=== PATIENT | male | born 1965 | race Caucasian/White ===

== ENCOUNTER → 2021-03-09 14:47 | Outpatient (BNVA) | payer OTHER, SELFPAY | PROVIDERS: PCP Internal Medicine; Visit Provider Urology ==

== ENCOUNTER 2022-02-24 14:23 | Outpatient (REF) | payer OTHER, SELFPAY ==
--- NOTE | ~2022-02-24 | US_ITS ---
EXAMINATION: US RETROPERITONEAL LIMITED (RENAL ONLY) CLINICAL INFORMATION: Kidney stones. COMPARISON: None TECHNIQUE: Real-time imaging of the kidneys. FINDINGS: RIGHT KIDNEY: 6.5 x 3.9 x 3.3 cm (SAG x AP x TRV). The kidney is small. There is renal cortical thinning. There is question of 2 small stones measuring 3 x 4 mm and 2 x 3 mm in the lower and midpole. No focal parenchymal lesions or hydronephrosis. LEFT KIDNEY: 12.2 x 5.8 x 5.7 cm (SAG x AP x TRV). The kidney is normal in size, contour, and echogenicity. Renal cortical thickness is normal. There is a 1 cm cyst in the lower pole. No renal calculi or hydronephrosis. US/US renal BI IMPRESSION: Atrophic-appearing right kidney. Question small right renal stones. Small left renal cyst.
== END 2022-02-24 14:24 | disposition home or self-care (01) ==
LOC: HO.HMGCX 14:23
PROVIDERS: PCP Internal Medicine; Visit Provider Urology
DX: N20.0 Calculus of kidney (principal)
CPT/HCPCS: 76775

== ENCOUNTER 2023-03-17 13:21 | Outpatient (AMB) | payer OTHER, SELFPAY ==
--- NOTE | 2023-03-17 13:42 | A.OFFVIS_ITS ---
Intake Intake Visit Reasons: 1Y US(set) Intake Note: Patient presents today for a follow-up on Renal Ultrasound: Meds- None Allergies to Antibiotic- No Known Allergies Blood Thinner- None Video Game Producer Required: No Accompanied by: Self / Same As Patient Allergies No Known Allergies Allergy (Verified 03/17/23 13:42) Medication List - Last Reconciled 03/17/23 by Felice Plummer MD gabapentin mg PO DAILY PRN hydrocodone-acetaminophen 7.5-325 mg tabs PO ropinirole 1 mg PO BID rotigotine (Neupro) 1 patch topical DAILY simvastatin 10 mg PO BEDTIME sumatriptan succinate 100 mg PO DAILY PRN trazodone 100 mg PO BEDTIME PRN HPI HPI Comments History of Present Illness Details Mr Gerber is a very pleasant male. He is a patient of Dr Griffith. They are seen for the following urologic conditions. - atrophic right kidney - nephrolithiasis Discussed ultrasound finding Question of 2 small stones on right with small cyst on left Continued follow-up He reminded me - [employer] Nephrolithiasis/Urolithiasis:? They are here for?further evaluation of nephrolithiasis ?- has been keeping up hydration ?- looking forward to [employer] season ?- discussed findings. Right atrophic kidney as known. No stones? They present for evaluation of? back pain ?none ? flank pain ?none ? abdominal pain ?none ? Urolithiasis was diagnosed?2013.? The patient previously had kidney stones whose composition w?unknown.? Laboratory investigations include?no recent labs, no recent labs.? 24 Hour urine evaluation?none on file, none on file.? Prior treatment(s) include?ESWL, left 4mm stone in setting of atrophic right kidney.? Prior imaging includes?a KUB x-ray, 2014 showing no evidence of stones ?02/06 , a KUB x-ray, showing no evidence of stones ?03/10 , a renal ultrasound, showing no evidence of stones, small cyst right, 03/10 nuc scan - R 12% with incomplete clearance ?03/11 , a renal ultrasound, atrophic right kidney, no stones ?03/12 , a renal ultrasound atrophic right, left no stones - 03/13 renal ultrasound right atrophic kidney, 1.2 cm cyst, no stones - 03/14 renal ultrasound right atrophic kidney, left kidney 1.2 cm cyst - 03/15 renal ultrasound evidence of stones ? UA today shows?high specific gravity suggestive of relative dehydration.? Current therapeutic plan will be?review in 12m.? Review of Systems Const Denies chills and Denies fever(s) Card Reports no additional complaints and Denies syncope Resp Denies cough GI Denies abdominal pain and Denies heartburn Reports as per HPI and Denies change in libido Neuro Denies syncope Psych Denies change in libido Endo Denies change in libido Physical Exam Const General: cooperative, healthy appearing, comfortable and no acute distress Orientation/consciousness: patient oriented x3 HEENT Face and sinus: Yes normal facial exam Mouth: moist mucous membranes Neck Neck: Yes normal visual inspection, Yes full ROM and Yes trachea midline Chest Chest palpation & inspection: normal inspection of the chest Resp Effort & Inspection: normal respiratory effort, able to speak in complete se ntences and no respiratory distress GI Inspection: Yes normal to inspection Back/Spine/Pelvis Cervical Spine: normal cervical lordosis Thoracic/Lumbar Spine: thoracic and lumbar spine normal to inspection Skin General skin exam: no rashes or lesions noted Neuro General: patient oriented x3, gait normal, tone normal and moves all extremities Extrem General: Yes normal to inspection and Yes capillary refill normal Assessment & Plan Assessment & Plan (1) Nephrolithiasis: Code(s): N20.0 - Calculus of kidney Plan 1 year follow-up ultrasound Orders: Orders US renal BI 364 Days N20.0 - Calculus of kidney Patient Instructions: Imaging studies, laboratory and physical exam results were discussed and reviewed in detail. No major barriers to patient understanding were identified. An opportunity to ask questions regarding the treatment plan was provided. All questions were answered. The patient expressed understanding and agreement with the above treatment plan. The patient is aware they should contact our office by phone for worsening of their current condition or the appearance of new urologic symptoms. Compliance is encouraged with any medications and followup testing that is ordered. It is a privilege to participate in the urologic care of your patient. If you have any questions or concerns regarding treatment for the above conditions, or other urologic issues, please do not hesitate to contact me. The office tele phone contact is [phone]. This note is constructed using voice recognition software. While every effort has been made to ensure accuracy grinding wheel inspector errors may have been included. Yours sincerely, Dr Felice Plummer MD, [facility] - Urology Providers of Expert, Compassionate Care for the Genitourinary System Coding Level of Care Code Est Pt Level 4 (09857) Diagnoses Nephrolithiasis N20.0
== END 2023-03-17 14:11 | disposition home or self-care (01) ==
PROVIDERS: PCP Internal Medicine; Visit Provider Urology
DX: N20.0 Calculus of kidney (principal)
CPT/HCPCS: 99214

== ENCOUNTER → 2023-03-17 13:21 | Outpatient (BNVA) | payer OTHER, SELFPAY | PROVIDERS: Visit Provider Urology ==

== ENCOUNTER 2024-03-19 13:13 | Outpatient (AMB) | payer OTHER, SELFPAY ==
--- NOTE | 2024-03-19 13:17 | A.OFFVIS_ITS ---
Intake Visit Reasons: 1Y Follow Up-US/PSA(set) Intake Note: Patient is Present for Follow Up psa/ultrasound/urinalysis Urology Medication:None Antibiotic Allergies: None Blood Thinners:None Patient denies any pain or discomfort. States he has some concerns on his urination Report was sent by his PCP. States there was some blood in his urine. He also states he has been having a lot of frequency Allergies No Known Allergies Allergy (Verified 03/17/23 13:42) HPI Comments Details: Mr Gerber is a very pleasant male. He is a patient of Dr Griffith. They are seen for the following urologic conditions. - atrophic right kidney - nephrolithiasis Discussed ultrasound finding No stones 1.2 cm cyst on left UA 2+ blood Plan office cystoscopy - nonsmoker - no were placed exposure to chemicals He reminded me - [employer] PSA 02/13 0.3 Nephrolithiasis/Urolithiasis:? They are here for?further evaluation of nephrolithiasis ?- has been keeping up hydration ?- looking forward to [employer] season ?- discussed findings. Right atrophic kidney as known. No stones? They present for evaluation of? back pain ?none ? flank pain ?none ? abdominal pain ?none ? Urolithiasis was diagnosed?2013.? The patient previously had kidney stones whose composition w?unknown.? Laboratory investigations include?no recent labs, no recent labs.? 24 Hour urine evaluation?none on file, none on file.? Prior treatment(s) include?ESWL, left 4mm stone in setting of atrophic right kidney.? Prior imaging includes?a KUB x-ray, 2014 showing no evidence of stones ?02/06 , a KUB x-ray, showing no evidence of stones ?03/10 , a renal ultrasound, showing no evidence of stones, small cyst right, 03/10 nuc scan - R 12% with incomplete clearance ?03/11 , a renal ultrasound, atrophic right kidney, no stones ?03/12 , a renal ultrasound atrophic right, left no stones - 03/13 renal ultrasound right atrophic kidney, 1.2 cm cyst, no stones - 03/14 renal ultrasound right atrophic kidney, left kidney 1.2 cm cyst - 03/15 renal ultrasound evidence of stones - 03/16 renal ultrasound right atrophic kidney, 1.2 cm cyst on left, no stones ? UA today shows?high specific gravity suggestive of relative dehydration.? Current therapeutic plan will be?review in 12m.? Review of Systems Const Denies chills and Denies fever(s) Card Reports no additional complaints and Denies syncope Resp Denies cough GI Denies abdominal pain and Denies heartburn Reports as per HPI and Denies change in libido Neuro Denies syncope Psych Denies change in libido Endo Denies change in libido Physical Exam Const General: cooperative, healthy appearing, comfortable and no acute distress Orientation/consciousness: patient oriented x3 HEENT Face and sinus: Yes normal facial exam Mouth: moist mucous membranes Neck Neck: Yes normal visual inspection, Yes full ROM and Yes trachea midline Chest Chest palpation & inspection: normal inspection of the chest Resp Effort & Inspection: normal respiratory effort, able to speak in complete sentences and no respiratory distress GI Inspection: Yes normal to inspection Back/Spine/Pelvis Cervical Spine: normal cervical lordosis Thoracic/Lumbar Spine: thoracic and lumbar spine normal to inspection Skin General skin exam: no rashes or lesions noted Neuro General: patient oriented x3, gait normal, tone normal and moves all extremities Extrem General: Yes normal to inspection and Yes capillary refill normal Results AMB Urinalysis, Automated UA Leukoctes 0 Abdulaziz/uL Last Edit by RUSSELL Queen on 03/19/24 13:25 UA Nitrite Negative Last Edit by RUSSELL Queen on 03/19/24 13:25 UA Urobilinogen 0.2 mg/dL Last Edit by RUSSELL Queen on 03/19/24 13:2 5 UA Protein 0 mg/dL Last Edit by RUSSELL Queen on 03/19/24 13:25 UA pH 5.0 Last Edit by Elsy Campbell, RMA on 03/19/24 13:25 UA Blood 80 Daniel/uL Last Edit by Elsy Campbell, RMA on 03/19/24 13:25 UA Specific [place] 1.025 Last Edit by Elsy Almeidaro, RMA on 03/19/24 13: 25 UA Ketone Negative Last Edit by Elsy Campbell, RMA on 03/19/24 13:25 UA Bilirubin 0 mg/dL Last Edit by Elsy Campbell, RMA on 03/19/24 13:25 UA Glucose 0 mg/dL Last Edit by Elsy Campbell, RMA on 03/19/24 13:25 Results Reviewed Results Reviewed: Laboratory Last Values Urine pH (Auto) 5.0 03/19/24 13:24 Specific [place] (Auto) 1.025 03/19/24 13:24 Urine Protein (Auto) 0 mg/dL 03/19/24 13:24 Glucose (UA)(Auto) 0 mg/dL 03/19/24 13:24 Urine Ketones (Auto) Negative 03/19/24 13:24 Urine Blood (Auto) 80 Daniel/uL 03/19/24 13:24 Urine Nitrite (Auto) Negative 03/19/24 13:24 Urine Bilirubin (Auto) 0 mg/dL 03/19/24 13:24 Urine Urobilinogen (Auto) 0.2 mg/dL 03/19/24 13:24 Leukocyte Esterase (Auto) 0 Abdulaziz/uL 03/19/24 13:24 Assessment & Plan Assessment & Plan (1) Microscopic hematuria: Code(s): R31.29 - Other microscopic hematuria Category: Medical (2) Nephrolithiasis: Code(s): N20.0 - Calculus of kidney Category: Medical Plan Office cystoscopy Orders: Orders AMB Urinalysis Automated Today Z13.9 - Encounter for screening, unspecified Patient Instructions: Imaging studies, laboratory and physical exam results were discussed and reviewed in detail. No major barriers to patient understanding were identified. An opportunity to ask questions regarding the treatment plan was provided. All questions were answered. The patient expressed understanding and agreement with the above treatment plan. The patient is aware they should contact our office by phone for worsening of their current condition or the appearance of new urologic symptoms. Compliance is encouraged with any medications and followup testing that is ordered. It is a privilege to participate in the urologic care of your patient. If you have any questions or concerns regarding treatment for the above conditions, or other urologic issues, please do not hesitate to contact me. The office telephone contact is [phone]. This note is constructed using voice recognition software. While every effort has been made to ensure accuracy show worker errors may have been included. Yours sincerely, Dr Felice Plummer MD, [facility] - Urology Providers of Expert, Compassionate Care for the Genitourinary System Coding Level of Care Code Est Pt Level 4 (04200) Diagnoses Microscopic hematuria R31.29 Nephrolithiasis N20.0
== END 2024-03-19 13:49 | disposition home or self-care (01) ==
PROVIDERS: PCP Internal Medicine; Visit Provider Urology
DX: R31.29 Other microscopic hematuria (principal); N20.0 Calculus of kidney; Z13.9 Encounter for screening, unspecified
CPT/HCPCS: 99214

== ENCOUNTER → 2024-03-19 13:13 | Outpatient (BNVA) | payer OTHER, SELFPAY | PROVIDERS: PCP Internal Medicine; Visit Provider Urology | DX: R31.29 Other microscopic hematuria (principal); N20.0 Calculus of kidney | CPT/HCPCS: 81003 ==

== ENCOUNTER 2024-04-19 12:43 | Outpatient (REF) | payer OTHER, SELFPAY ==
[2024-04-19 16:37] LABS: Urine Cytology See Pathology rpt
== END 2024-04-19 12:44 | disposition home or self-care (01) ==
LOC: HO.LAB 12:43
PROVIDERS: PCP Internal Medicine; Visit Provider Urology
DX: R31.29 Other microscopic hematuria (principal)
CPT/HCPCS: 52000; 81003; 88112

== ENCOUNTER 2024-04-19 12:43 | Outpatient (AMB) | payer OTHER, SELFPAY ==
--- NOTE | 2024-04-19 13:05 | MHC.OFFVIS ---
Intake Visit Reasons: cysto Intake Note: Patient is Present for Cystoscopy Urology Med:None Antibiotic Allergy: None Blood Thinner: None URO- G Disposable Cystoscope lot:[id number] exp:11/01/2026 Allergies No Known Allergies Allergy (Verified 03/17/23 13:42) HPI Comments Details: Mr Gerber is a very pleasant male. He is a patient of Dr Griffith. They are seen for the following urologic conditions. - atrophic right kidney - nephrolithiasis Cystoscopy Has cystitis on posterior wall bladder Trial Bactrim three-month low-dose Discussed ultrasound finding No stones 1.2 cm cyst on left UA 2+ blood Plan office cystoscopy - nonsmoker - no were placed exposure to chemicals He reminded me - [employer] PSA 02/13 0.3 Nephrolithiasis/Urolithiasis:? They are here for?further evaluation of nephrolithiasis ?- has been keeping up hydration ?- looking forward to [employer] season ?- discussed findings. Right atrophic kidney as known. No stones? They present for evaluation of? back pain ?none ? flank pain ?none ? abdominal pain ?none ? Urolithiasis was diagnosed?2013.? The patient previously had kidney stones whose composition w?unknown.? Laboratory investigations include?no recent labs, no recent labs.? 24 Hour urine evaluation?none on file, none on file.? Prior treatment(s) include?ESWL, left 4mm stone in setting of atrophic right kidney.? Prior imaging includes?a KUB x-ray, 2014 showing no evidence of stones ?02/06 , a KUB x-ray, showing no evidence of stones ?03/10 , a renal ultrasound, showing no evidence of stones, small cyst right, 03/10 nuc scan - R 12% with incomplete clearance ?03/11 , a renal ultrasound, atrophic right kidney, no stones ?03/12 , a renal ultrasound atrophic right, left no stones - 03/13 renal ultrasound right atrophic kidney, 1.2 cm cyst, no stones - 03/14 renal ultrasound right atrophic kidney, left kidney 1.2 cm cyst - 03/15 renal ultrasound evidence of stones - 03/16 renal ultrasound right atrophic kidney, 1.2 cm cyst on left, no stones ? UA today shows?high specific gravity suggestive of relative dehydration.? Current therapeutic plan will be?review in 12m Microscopic hematuria Persistent Normal imaging Office Procedures Cystoscopy Consent Discussed risk and benefit or proposed procedure with the patient. Information consent for procedure given to the patient. Discussed technical aspects, risks, benefits and alternatives in full. Addressed all of the patient's questions and concerns regarding the procedure. The patient demonstrated knowledge and understanding. They wish to proceed with this procedure. Preparation The patient was prepped in the usual manner. A school cafeteria cook was present and in the room. Genitalia was prepped with betadine solution in a sterile manner. Lidocaine Jelly 2% was placed into the urethra and 16Fr flexible Olympus cystoscope was inserted into the meatus after adequate lubrication. Procedure Cystoscopy performed using a disposable Urovue digital 16 Japanese cystoscope. Meatus circumcised Urethra anterior and posterior urethra normal Prostatic Urethra unremarkable Bladder examination with retroflexion of cystoscope Bladder Orifices normal shape and position Bladder Capacity median Trabeculations -- Cellule Formation - Diverticulum Formation - Mucosal Erythema - Bladder Tumor - [id number] DISPOSABLE SCOPE URO-G FLEXIBLE SCOPE Procedure code (CPT) selection complete Office Meds lidocaine HCl 2 % mucosal jelly in applicator Performing Provider: Felice Plummer MD Performing Location: [facility] [place] [facility] Administered by: Piero Ruelas LPN on 04/19/24 13:24 Dose Route Admin Location Dispensed Lot Number Expiration Date [facility] Operations Asst 10 mL intra-urethral 10 mL nitrofurantoin monohydrate/macrocrystals 100 mg capsule Performing Provider: Felice Plummer MD Performing Location: [facility] [place] [facility] Administered by: Piero Ruelas LPN on 04/19/24 13:24 Dose Route Admin Location Dispensed Lot Number Expiration Date [facility] Operations Asst 100 mg PO 1 cap naproxen 500 mg tablet Performing Provider: Felice Plummer MD Performing [facility] [place] [facility] Administered by: Piero Ruelas LPN on 04/19/24 13:24 Dose Route Admin Location Dispensed Lot Number Expiration Date [facility] Operations Asst 500 mg PO 1 tab Results AMB Urinalysis, Automated UA Leukoctes 0 Abdulaziz/uL Last Edit by Elsy Campbell A on 04/19/24 13:23 UA Nitrite Negative Last Edit by Elsy Campbell A on 04/19/24 13:23 UA Urobilinogen 0.2 mg/dL Last Edit by Elsy Campbell A on 04/19/24 13:23 UA Protein 15 mg/dL Last Edit by Elsy Campbell A on 04/19/24 13:23 UA pH 5.0 Last Edit by Elsy Campbell A on 04/19/24 13:23 UA Blood 200 Daniel/uL Last Edit by Elsy Campbell A on 04/19/24 13:23 UA Specific [place] 1.030 Last Edit by Elsy Campbell A on 04/19/24 13:23 UA Ketone Negative Last Edit by Elsy Campbell A on 04/19/24 13:23 UA Bilirubin 0 mg/dL Last Edit by Elsy Campbell A on 04/19/24 13:23 UA Glucose 0 mg/dL Last Edit by Elsy Campbell A on 04/19/24 13:23 Results Reviewed Results Reviewed: Laboratory Last Values Urine pH (Auto) 5.0 04/19/24 13:17 Specific [place] (Auto) 1.030 04/19/24 13:17 Urine Protein (Auto) 15 mg/dL 04/19/24 13:17 Glucose (UA)(Auto) 0 mg/dL 04/19/24 13:17 Urine Ketones (Auto) Negative 04/19/24 13:17 Urine Blood (Auto) 200 Daniel/uL 04/19/24 13:17 Urine Nitrite (Auto) Negative 04/19/24 13:17 Urine Bilirubin (Auto) 0 mg/dL 04/19/24 13:17 Urine Urobilinogen (Auto) 0.2 mg/dL 04/19/24 13:17 Leukocyte Esterase (Auto) 0 Abdulaziz/uL 04/19/24 13:17 Assessment & Plan Assessment & Plan (1) Cystitis: Code(s): N30.90 - Cystitis, unspecified without hematuria Category: Medical Plan Cystitis Daily low-dose Bactrim Orders: Orders AMB Cystoscopy 04/19/24 R31.29 - Other microscopic hematuria AMB Urinalysis Automated 04/19/24 Z13.9 - Encounter for screening, unspecified, R31.29 - Other microscopic hematuria Urine Cytology 04/19/24 R31.29 - Other microscopic hematuria Medications: New sulfamethoxazole-trimethoprim 400-80 mg (Bactrim) 1 tab PO BEDTIME 90 tabs 0RF 90 days N30.90 - Cystitis, unspecified without hematuria, N39.0 - Urinary tract infection, site not specified Patient Instructions: Imaging studies, laboratory and physical exam results were discussed and reviewed in detail. No major barriers to patient understanding were identified. An opportunity to ask questions regarding the treatment plan was provided. All questions were answered. The patient expressed understanding and agreement with the above treatment plan. The patient is aware they should contact our office by phone for worsening of their current condition or the appearance of new urologic symptoms. Compliance is encouraged with any medications and followup testing that is ordered. It is a privilege to participate in the urologic care of your patient. If you have any questions or concerns regarding treatment for the above conditions, or other urologic issues, please do not hesitate to contact me. The office telephone contact is [phone]. This note is constructed using voice recognition software. While every effort has been made to ensure accuracy director river restoration errors may have been included. Yours sincerely, Dr Felice Plummer MD, [facility] - Urology Providers of Expert, Compassionate Care for the Genitourinary System Coding Level of Care Code Est Pt Level 4 (25148) Diagnoses Cystitis N30.90 CPT Codes Cystoscopy - CPT: [id number] ([id number])
== END 2024-04-19 13:54 | disposition home or self-care (01) ==
PROVIDERS: PCP Internal Medicine; Visit Provider Urology
DX: R31.29 Other microscopic hematuria (principal); Z13.9 Encounter for screening, unspecified
CPT/HCPCS: 52000; 99214

== ENCOUNTER 2024-07-12 15:00 | Outpatient (AMB) | payer OTHER, SELFPAY ==
--- NOTE | 2024-07-12 15:17 | A.OFFVIS_ITS ---
Intake Visit Reasons: 3m/UA Intake Note: Patient is present for 3M/UA Urology Medication:NONE Antibiotic Allergy:NONE Blood Thinner:NONE Stereotyper Required: No Allergies No Known Allergies Allergy (Verified 07/12/24 15:17) HPI Comments Details: Mr Gerber is a very pleasant male. He is a patient of Dr Griffith. They are seen for the following urologic conditions. - atrophic right kidney - nephrolithiasis Three-month follow-up Bactrim low-dose UA 1+ blood otherwise negative Prior Cystoscopy had cystitis on posterior wall bladder Discussed ultrasound finding No stones 1.2 cm cyst on left UA 2+ blood PSA 02/13 0.3 Nephrolithiasis/Urolithiasis:? They are here for?further evaluation of nephrolithiasis ?- has been keeping up hydration ?- looking forward to [employer] season ?- discussed findings. Right atrophic kidney as known. No stones? They present for evaluation of? back pain ?none ? flank pain ?none ? abdominal pain ?none ? Urolithiasis was diagnosed?2013.? The patient previously had kidney stones whose composition w?unknown.? Laboratory investigations include?no recent labs, no recent labs.? 24 Hour urine evaluation?none on file, none on file.? Prior treatment(s) include?ESWL, left 4mm stone in setting of atrophic right kidney.? Prior imaging includes?a KUB x-ray, 2014 showing no evidence of stones ?02/06 , a KUB x-ray, showing no evidence of stones ?03/10 , a renal ultrasound, showing no evidence of stones, small cyst right, 03/10 nuc scan - R 12% with incomplete clearance ?03/11 , a renal ultrasound, atrophic right kidney, no stones ?03/12 , a renal ultrasound atrophic right, left no stones - 03/13 renal ultrasound right atrophic kidney, 1.2 cm cyst, no stones - 03/14 renal ultrasound right atrophic kidney, left kidney 1.2 cm cyst - 03/15 renal ultrasound evidence of stones - 03/16 renal ultrasound right atrophic kidney, 1.2 cm cyst on left, no stones ? UA today shows?high specific gravity suggestive of relative dehydration.? Current therapeutic plan will be?review in 12m Microscopic hematuria Persistent Normal imaging Review of Systems Const Denies chills and Denies fever(s) Card Reports no additional complaints and Denies syncope Resp Denies cough GI Denies abdominal pain and Denies heartburn Reports as per HPI and Denies change in libido Neuro Denies syncope Psych Denies change in libido Endo Denies change in libido Physical Exam Const General: cooperative, healthy appearing, comfortable and no acute distress Orientation/consciousness: patient oriented x3 HEENT Face and sinus: Yes normal facial exam Mouth: moist mucous membranes Neck Neck: Yes normal visual inspection, Yes full ROM and Yes trachea midline Chest Chest palpation & inspection: normal inspection of the chest Resp Effort & Inspection: normal respiratory effort, able to speak in complete sentences and no respiratory distress GI Inspection: Yes normal to inspection Back/Spine/Pelvis Cervical Spine: normal cervical lordosis Thoracic/Lumbar Spine: thoracic and lumbar spine normal to inspection Skin General skin exam: no rashes or lesions noted Neuro General: patient oriented x3, gait normal, tone normal and moves all extremities Extrem General: Yes normal to inspection and Yes capillary refill normal Results AMB Urinalysis, Automated UA Leukoctes 0 Abdulaziz/uL Last Edit by DARRYL John on 07/12/24 15:28 UA Nitrite Negative Last Edit by DARRYL John on 07/12/24 15:28 UA Urobilinogen 0.2 mg/dL Last Edit by DARRYL John on 07/12/24 15:2 8 UA Protein 15 mg/dL Last Edit by DARRYL John on 07/12/24 15:28 UA pH 6.0 Last Edit by DARRYL John on 07/12/24 15:28 UA Blood 80 Daniel/uL Last Edit by DARRYL John on 07/12/24 15:28 UA Specific [place] 1.025 Last Edit by DARRYL John on 07/12/24 15: 28 UA Ketone Negative Last Edit by DARRYL John on 07/12/24 15:28 UA Bilirubin 0 mg/dL Last Edit by DARRYL John on 07/12/24 15:28 UA Glucose 0 mg/dL Last Edit by DARRYL John on 07/12/24 15:28 Results Reviewed Results Reviewed: Laboratory Last Values Urine pH (Auto) 6.0 07/12/24 15:27 Specific [place] (Auto) 1.025 07/12/24 15:27 Urine Protein (Auto) 15 mg/dL 07/12/24 15:27 Glucose (UA)(Auto) 0 mg/dL 07/12/24 15:27 Urine Ketones (Auto) Negative 07/12/24 15:27 Urine Blood (Auto) 80 Daniel/uL 07/12/24 15:27 Urine Nitrite (Auto) Negative 07/12/24 15:27 Urine Bilirubin (Auto) 0 mg/dL 07/12/24 15:27 Urine Urobilinogen (Auto) 0.2 mg/dL 07/12/24 15:27 Leukocyte Esterase (Auto) 0 Abdulaziz/uL 07/12/24 15:27 Assessment & Plan Assessment & Plan (1) Nephrolithiasis: Code(s): N20.0 - Calculus of kidney Category: Medical (2) Cystitis: Code(s): N30.90 - Cystitis, unspecified without hematuria Category: Medical (3) Microscopic hematuria: Code(s): R31.29 - Other microscopic hematuria Category: Medical Plan Six-month follow-up UA Orders: Orders AMB Urinalysis Automated Today Z13.9 - Encounter for screening, unspecified Patient Instructions: Imaging studies, laboratory and physical exam results were discussed and reviewed in detail. No major barriers to patient understanding were identified. An opportunity to ask questions regarding the treatment plan was provided. All questions were answered. The patient expressed understanding and agreement with the above treatment plan. The patient is aware they should contact our office by phone for worsening of their current condition or the appearance of new urologic symptoms. Compliance is encouraged with any medications and followup testing that is ordered. It is a privilege to participate in the urologic care of your patient. If you have any questions or concerns regarding treatment for the above conditions, or other urologic issues, please do not hesitate to contact me. The office telephone contact is [phone]. This note is constructed using voice recognition software. While every effort has been made to ensure accuracy tactical debriefer officer errors may have been included. Yours sincerely, Dr Felice Plummer MD, [facility] - Urology Providers of Expert, Compassionate Care for the Genitourinary System Coding Level of Care Code Est Pt Level 3 (03696) Diagnoses Nephrolithiasis N20.0 Cystitis N30.90 Microscopic hematuria R31.29
== END 2024-07-12 16:13 | disposition home or self-care (01) ==
PROVIDERS: PCP Internal Medicine; Visit Provider Urology
DX: N20.0 Calculus of kidney (principal); N30.90 Cystitis, unspecified without hematuria; R31.29 Other microscopic hematuria; Z13.9 Encounter for screening, unspecified
CPT/HCPCS: 99213

== ENCOUNTER 2025-01-07 13:41 | Outpatient (AMB) | payer OTHER, SELFPAY ==
--- NOTE | 2025-01-07 14:14 | A.OFFVIS_ITS ---
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 He is a patient of Dr Griffith. They are seen for the following urologic conditions. - atrophic right kidney - nephrolithiasis - lower urinary tract symptoms Voiding habits within normal limits Prior Cystoscopy had cystitis on posterior wall bladder UA persistent 2+ blood Urinary with urge Discussed trial of tadalafil Prescription provided PSA 02/13 0.3 Nephrolithiasis/Urolithiasis:? They are here for?further evaluation of nephrolithiasis ?- has been keeping up hydration ?- looking forward to [employer] season ?- discussed findings. Right atrophic kidney as known. No stones? They present for evaluation of? back pain ?none ? flank pain ?none ? abdominal pain ?none ? Urolithiasis was diagnosed?2013.? The patient previously had kidney stones whose composition w?unknown.? Laboratory investigations include?no recent labs, no recent labs.? 24 Hour urine evaluation?none on file, none on file.? Prior treatment(s) include?ESWL, left 4mm stone in setting of atrophic right kidney.? Prior imaging includes?a KUB x-ray, 2014 showing no evidence of stones ?02/06 , a KUB x-ray, showing no evidence of stones ?03/10 , a renal ultrasound, showing no evidence of stones, small cyst right, 03/10 nuc scan - R 12% with incomplete clearance ?03/11 , a renal ultrasound, atrophic right kidney, no stones ?03/12 , a renal ultrasound atrophic right, left no stones - 03/13 renal ultrasound right atrophic kidney, 1.2 cm cyst, no stones - 03/14 renal ultrasound right atrophic kidney, left kidney 1.2 cm cyst - 03/15 renal ultrasound evidence of stones - 03/16 renal ultrasound right atrophic kidney, 1.2 cm cyst on left, no stones ? UA today shows?high specific gravity suggestive of relative dehydration .? Current therapeutic plan will be?review in 12m Microscopic hematuria Persistent Normal imaging Review of Systems Const Denies chills and Denies fever(s) Card Reports no additional complaints and Denies syncope Resp Denies cough GI Denies abdominal pain and Denies heartburn Reports as per HPI and Denies change in libido Neuro Denies syncope Psych Denies change in libido Endo Denies change in libido Physical Exam Const General: cooperative, healthy appearing, comfortable and no acute distress Orientation/consciousness: patient oriented x3 HEENT Face and sinus: Yes normal facial exam Mouth: moist mucous membranes Neck Neck: Yes normal visual inspection, Yes full ROM and Yes trachea midline Chest Chest palpation & inspection: normal inspection of the chest Resp Effort & Inspection: normal respiratory effort, able to speak in complete sentences and no respiratory distress GI Inspection: Yes normal to inspection Back/Spine/Pelvis Cervical Spine: normal cervical lordosis Thoracic/Lumbar Spine: thoracic and lumbar spine normal to inspection Skin General skin exam: no rashes or lesions noted Neuro General: patient oriented x3, gait normal, tone normal and moves all extremities Extrem General: Yes normal to inspection and Yes capillary refill normal Results AMB Urinalysis, Automated 2 UA Leukoctes 0 Abdulaziz/uL Last Edit by DARRYL John on 01/07/25 16:05 UA Nitrite Negative Last Edit by DARRYL John on 01/07/25 16:05 UA Urobilinogen 0.2 mg/dL Last Edit by DARRYL John on 01/07/25 16:0 5 UA Protein 0 mg/dL Last Edit by DARRYL John on 01/07/25 16:05 UA pH 6.0 Last Edit by DARRYL John on 01/07/25 16:05 UA Blood 80 Daniel/uL Last Edit by DARRYL John on 01/07/25 16:05 UA Specific [place] 1.025 Last Edit by DARRYL John on 01/07/25 16: 05 UA Ketone Negative Last Edit by DARRYL John on 01/07/25 16:05 UA Bilirubin 0 mg/dL Last Edit by DARRYL John on 01/07/25 16:05 UA Glucose 0 mg/dL Last Edit by DARRYL John on 01/07/25 16:05 Results Reviewed Results Reviewed: Laboratory Last Values Urine pH (Auto) 6.0 01/07/25 16:05 Specific [place] (Auto) 1.025 01/07/25 16:05 Urine Protein (Auto) 0 mg/dL 01/07/25 16:05 Glucose (UA)(Auto) 0 mg/dL 01/07/25 16:05 Urine Ketones (Auto) Negative 01/07/25 16:05 Urine Blood (Auto) 80 Daniel/uL 01/07/25 16:05 Urine Nitrite (Auto) Negative 01/07/25 16:05 Urine Bilirubin (Auto) 0 mg/dL 01/07/25 16:05 Urine Urobilinogen (Auto) 0.2 mg/dL 01/07/25 16:05 Leukocyte Esterase (Auto) 0 Abdulaziz/uL 01/07/25 16:05 Assessment & Plan Assessment & Plan (1) Bladder instability: Code(s): N32.89 - Other specified disorders of bladder Category: Medical Plan Trial daily tadalafil Orders: Orders AMB Urinalysis Automated 01/07/25 Z13.9 - Encounter for screening, unspecified Urine Cytology 01/07/25 R31.29 - Other microscopic hematuria Medications: New tadalafil [id number] [facility] [id number] Member [id number] 5 mg PO DAILY 90 days 90 tabs 0RF sexual activity N32.89 - Other specified disorders of bladder Patient Instructions: This note is constructed using voice recognition software. While every effort has been made to ensure accuracy hvac residential service technician errors may have been included. Imaging studies, laboratory and physical exam results were discussed and reviewed in detail. No major barriers to patient understanding were identified. An opportunity to ask questions regarding the treatment plan was provided. All questions were answered. The patient expressed understanding and agreement with the above treatment plan. The patient is aware they should contact our office by phone for worsening of their current condition or the appearance of new urologic symptoms. Compliance is encouraged with any medications and followup testing that is ordered. It is a privilege to participate in the urologic care of your patient. If you have any questions or concerns regarding treatment for the above conditions, or other urologic issues, please do not hesitate to contact me. The office telephone contact is [phone]. Sincerely, Dr Felice Plummer MD, [facility] - Urology Compassionate Specialist Care for the Genitourinary System Coding Level of Care Code Est Pt Level 4 (81278) Diagnoses Bladder instability N32.89
--- OUTSIDE RECORDS SUMMARY | 2025-01-07 15:38 | XMS_ITS | Clinical Summary ---
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 Name Role Phone Unavailable Primary Care Provider Unavailabl e Social History Tobacco Use Types Packs/Day Years Used Date Smoking Tobacco: Never Assessed Sex and Gender Information Value Date Recorded Sex Assigned at Not on file Legal Sex Male 3:06 PM EDT Gender Identity Not on file Sexual Orientation Not on file Last Filed Vital Signs Vital Sign Reading Time Taken Comments Blood Pressure - - Pulse - - Temperature 36.3 ??C (97.3 ??F) 05/11/2021 3:28 PM ED T Respiratory Rate - - Oxygen Saturation - - Inhaled Oxygen Concentration - - Weight - - Height - - Body Mass Index - - Plan of Treatment Health Maintenance Due Date Last Done Comments Hepatitis C Virus Screening 1963 HIV Screening 1976 DTaP/Tdap/Td Vaccines (1 - Tdap) 1982 Colonoscopy 2008 Pneumococcal Vaccines 50+ (1 of 1 - PCV) 2013 Zoster (Shingles) Vaccine (1 of 2) 2013 COVID-19 Vaccine ( - 2023-2 5 season) 2024 Influenza Vaccine 02/21/2025 RSV Vaccine 60 years and old er and Patients (1 - 1-dose 75+ series) 2038 Hepatitis B Vaccines Aged Out No long er eligible based on patient's age to complete this topic Insurance [facility]
== END 2025-01-07 14:53 | disposition home or self-care (01) ==
LOC: HO.HUSH 13:42
PROVIDERS: PCP Internal Medicine; Visit Provider Urology
DX: Z13.9 Encounter for screening, unspecified (principal)

== ENCOUNTER 2025-01-07 13:41 | Outpatient (REF) | payer OTHER, SELFPAY ==
[2025-01-07 16:41] LABS: Urine Cytology See Pathology rpt
== END 2025-01-07 13:42 | disposition home or self-care (01) ==
LOC: HO.LAB 13:41
PROVIDERS: PCP Internal Medicine; Visit Provider Urology
DX: R31.29 Other microscopic hematuria (principal)
CPT/HCPCS: 81003; 88112